=== PATIENT | female | born 1950 | race Caucasian/White ===

== ENCOUNTER 2020-11-16 11:55 | Emergency (ER) | payer MEDICARE, SELFPAY ==
[2020-11-16 12:20] VITALS: BP 141/79; PULSE 74; RESP 20; TEMP 36.9; O2SAT 95; BMI 43.5
--- NOTE | 2020-11-16 12:45 | HMH.EDUTC ---
[facility] – [place] Disposition Clinical Impression: Cellulitis Qualifiers: Site of cellulitis: unspecified site Qualified Code(s): L03.90 - Cellulitis, unspecified Disposition: Home, Self-Care Condition on Discharge: Good Instructions: Cellulitis, Clindamycin Additional Instructions: *Start antibiotic(s) immediately and be sure to take as ordered for the FULL length of time although you may be feeling better or start to see improvement in the next 24-48 hours *Monitor closely. Outlined redness so that you can monitor easier. Follow up immediately for new or worsening symptoms including but not limited to redness, swelling, streaking from site fever or chills. *Warm compress 15 minutes 3-4 times day Take antibiotics as prescribed *Monitor Temp. Tylenol every 4 hours as needed and ibuprofen every 6 hours as needed (as long as your primary care doctor has told you that it is ok to take both. For fever, aches, pain. ER if no less that 101 despite Tylenol and ibuprofen Follow up with your family doctor/primary care physician in the next 48-72 hours if no improvement Eat some Yogurt or take a probiotic to help prevent GI upset Prescriptions: clindamycin HCL [Cleocin HCl] 300 mg PO Q8H 7 Days #21 cap Transmission Status: Pending to [facility]/pharmacy #[id number] Referrals: Provider,Referral, [Primary Care Provider] - Time of Disposition: 13:00 Medical Decision Making - Jeremiah Inquiry Pt receiving controlled substance: No Jeremiah was queried for this patient: No Vital Signs: 11/16/20 12:20 Temperature 98.4 F Temperature Source Temporal Artery Scan Pulse Rate [Right Brachial] 74 Respiratory Rate 20 Blood Pressure [Right Arm] 141/79 H Blood Pressure Mean [Right Arm] 99 Blood Pressure Source [Right Arm] Automatic Cuff Blood Pressure Position [Right Arm] Sitting 02 Sat by Pulse Oximetry 95 Oxygen Delivery Method Room Air [facility] – [place] HPI - General Stated complaint: right arm tatto infection Time Seen by Provider: 11/16/20 12:45 Mode of Arrival: Ambulatory Source of Information: Patient Limitations: No Limitations Description of Symptoms (Recalled from Triage Doc. by RN): PATIENT STATES SHE GOT A TATTOO ON THURSDAY TO RIGHT ARM. THIS MORNING SHE NOTICED THE TATTOO WAS RED AND WARM, CONCERNED WITH INFECTION HEENT Symptoms (Recalled from RN notes): No Resp Symptoms (Recalled from RN notes): No Skin Symptoms (Recalled from RN notes): Yes MS Symptoms (Recalled from RN notes): No Functional Status (Recalled from RN notes): WNL - History of Present Illness Provider Complaint: Patient states that she had a tattoo on her right forearm done on Thu State that yesterday she noticed she was having some redness and seeing raised areas on forearm States that she used over the counter Creams but today it was red and warm so she came in to get it checked - Related Data Previous Rx's Medication Instructions Recorded clindamycin HCL [Cleocin HCl] 300 mg PO Q8H 7 Days #21 cap 11/16/20 Allergies Allergy/AdvReac Type Severity Reaction Status Date / Time No Known Allergies Allergy Verified 11/16/20 12:37 - Worker's Comp Is this a Worker's Comp case?: No [facility] History - Hepatitis A Screen Drug use history?: No High risk sexual behaviors?: No History of sexually transmitted infection?: No Currently employed?: No Childcare worker?: No Do you have indoor plumbing?: Yes Do you have electricity?: Yes Attestation statement:: This patient has been screened for Hepatitis A risk factors. I have reviewed the patient's past medical history: Yes ROS Obtained: Yes All systems reviewed & no additional complaints, Yes Systems reviewed as appropriate & no additional complaints - Constitutional Constitutional: Reports system reviewed and no additional complaints, except as docu, Denies body ache, Denies chills, Denies fever(s) - Cardiovascular Cardiovascular: Reports system reviewed and no additional complaints, except as docu - Respiratory Respirato
[2020-11-16 13:06] VITALS: BP 141/79; PULSE 74; RESP 20; TEMP 36.9; O2SAT 95
== END 2020-11-16 13:10 | disposition home or self-care (01) ==
PROVIDERS: Emergency Provider Nurse Practitioner
DX: L03.113 Cellulitis of right upper limb (principal); L81.8 Other specified disorders of pigmentation
CPT/HCPCS: G0463; 99202